=== PATIENT | female | born 1960 | race Caucasian/White ===

== ENCOUNTER 2021-10-27 09:49 | Emergency (ER) | payer MEDICAID ==
[~2021-10-27] VITALS: Ht 162.6 cm; Wt 70.5 kg
[2021-10-27 09:58] VITALS: BP 112/68
[2021-10-27 12:07] LABS: BASOPHILS # (AUTO) 0.1 X10'3 (0-0.2); BASOPHILS % (AUTO) 0.7 % (0-1); EOSINOPHILS # (AUTO) 0.1 X10'3 (0-0.9); EOSINOPHILS % (AUTO) 1.2 % (0-6); HEMATOCRIT 39.5 % (35.0-45.0); HEMOGLOBIN 13.1 g/dl (12.0-16.0); LYMPHOCYTES % (AUTO) 25.9 % (21-51); MEAN CORPUSCULAR HEMOGLOBIN 28.3 PG (27.0-31.0); MEAN CORPUSCULAR HGB CONC 33.1 g/dL (33.0-36.5); MEAN CORPUSCULAR VOLUME 85.6 FL (78-98); MEAN PLATELET VOLUME 8.3 FL (7.4-10.4); MONOCYTES # (AUTO) 0.7 X10'3 (0-0.9); NEUTROPHILS # (AUTO) 4.8 X10'3 (1.8-7.7); NEUTROPHILS % (AUTO) 63.2 % (42-75); PLATELET COUNT 249 X10'3 (140-440); RED BLOOD COUNT 4.61 X10'6 (4.20-5.60); WHITE BLOOD COUNT 7.6 X10'3 (4.5-11.0)
[2021-10-27 12:30] LABS: ALANINE AMINOTRANSFERASE 28 U/L (12-78); ALBUMIN 3.4 G/DL (3.4-5.0); ALKALINE PHOSPHATASE 99 IU/L (46-116); ANION GAP 8 (8-16); ASPARTATE AMINO TRANSFERASE 26 U/L (10-37); BILIRUBIN,TOTAL 0.6 MG/DL (0.1-1.0); BLOOD UREA NITROGEN 11 MG/DL (7-18); BUN/CREATININE RATIO 15.3 (6.6-38.0); CALCIUM 8.9 MG/DL (8.5-10.1); CHLORIDE 104 MMOL/L (99-107); CREATININE 0.72 MG/DL (0.40-0.90); GLUCOSE 100 MG/DL (70-104); POTASSIUM 3.5 MMOL/L (3.5-5.1); SODIUM 140 MMOL/L (135-145); TOTAL CARBON DIOXIDE 28.4 MMOL/L (24-32); TOTAL PROTEIN 6.8 G/DL (6.4-8.2); eGFR 82 ML/MIN
[2021-10-27 12:33] LABS: CLARITY,URINE CLEAR (Clear); COLOR,URINE YELLOW (Yellow); GLUCOSE, URINE NEGATIVE (Neg); KETONES,URINE NEGATIVE (Neg); LEUKOCYTE ESTERASE ,URINE NEGATIVE (Neg); NITRITES, URINE POSITIVE (Neg); OCCULT BLOOD,URINE NEGATIVE (Neg); PROTEIN,URINE NEGATIVE (Neg); UROBILINOGEN,URINE 0.2 E.U/dL (0.2-1.0)
[2021-10-27 12:39] LABS: UA COLLECTION TYPE CLN CATCH MIDSTREAM
[2021-10-27 12:43] LABS: BACTERIA,URINE FEW /HPF (Neg); CAL OXALATE CRYSTALS 1+ /HPF (NEGATIVE); MUCUS STRANDS FEW /LPF (Neg); RBC,URINE NONE SEEN /HPF (0-2); SQUAMOUS EPITHELIAL CELL,UR FEW /LPF (FEW); WBC,URINE 0-4 /HPF (0-4)
[2021-10-27] MEDS ORDERED: NAPR-56 PO (12:52)
[2021-10-27] MEDS ORDERED: CEPH250T PO (12:52)
[2021-10-27 12:57] LABS: URINE AMPHETAMINE SCREEN NEGATIVE (Neg); URINE BARBITUATE SCREEN NEGATIVE (Neg); URINE BENZODIAZEPINES SCREEN NEGATIVE (Neg); URINE CANNABINOID SCREEN NEGATIVE (Neg); URINE COCAINE SCREEN NEGATIVE (Neg); URINE METHADONE SCREEN NEGATIVE (Neg); URINE OPIATE SCREEN NEGATIVE (Neg); URINE PHENCYCLIDINE SCREEN NEGATIVE (Neg)
== END 2021-10-27 13:12 | disposition home or self-care (01) ==
LOC: ER 09:50
DX: N39.0 Urinary tract infection, site not specified (principal); K08.89 Other specified disorders of teeth and supporting structures; Z59.00 Homelessness unspecified; Z88.0 Allergy status to penicillin; Z72.89 Other problems related to lifestyle
CPT/HCPCS: 36415; 80053; 80305; 81001; 85025; 87077; 87088; 87186; 99283

== ENCOUNTER 2022-04-10 09:58 | Emergency (ER) | payer MEDICAID ==
[~2022-04-10] VITALS: Ht 157.5 cm; Wt 63.6 kg
[2022-04-10 11:21] VITALS: BP 126/80
[2022-04-10] MEDS ORDERED: HYDROcodone/acetaminophen 10/325mg tab PO ONE (11:55)
[2022-04-10] MEDS ORDERED: ALLO300T2 PO (11:57)
== END 2022-04-10 12:06 | disposition home or self-care (01) ==
LOC: ER 10:00
DX: S90.32XA Contusion of left foot, initial encounter (principal); E78.00 Pure hypercholesterolemia, unspecified; Z88.0 Allergy status to penicillin; X58.XXXA Exposure to other specified factors, initial encounter; Y93.89 Activity, other specified; Y92.89 Other specified places as the place of occurrence of the external cause; Y99.8 Other external cause status
CPT/HCPCS: 99283

== ENCOUNTER 2022-11-19 12:16 | Emergency (ER) | payer MEDICAID ==
[~2022-11-19] VITALS: Ht 162.6 cm; Wt 85.6 kg
[~2022-11-19 12:16] MED LIST: ALLO300T2 PO
[2022-11-19 13:26] VITALS: BP 150/99; PULSE 107; RESP 18; TEMP 99.1; O2SAT 94
[2022-11-19] MEDS ORDERED: LIDOcaine Viscous 15ml cup MM ONE (14:20)
[2022-11-19 15:05] LABS: BASOPHILS # (AUTO) 0.1 X10'3 (0-0.2); BASOPHILS % (AUTO) 1.2 % (0-1); EOSINOPHILS # (AUTO) 0.2 X10'3 (0-0.9); EOSINOPHILS % (AUTO) 2.5 % (0-6); HEMATOCRIT 31.1 % (35.0-45.0); HEMOGLOBIN 9.9 g/dl (12.0-16.0); LYMPHOCYTES % (AUTO) 28.9 % (21-51); MEAN CORPUSCULAR HEMOGLOBIN 22.9 PG (27.0-31.0); MEAN CORPUSCULAR HGB CONC 31.9 g/dL (33.0-36.5); MEAN CORPUSCULAR VOLUME 71.8 FL (78-98); MEAN PLATELET VOLUME 7.9 FL (7.4-10.4); MONOCYTES # (AUTO) 0.6 X10'3 (0-0.9); MONOCYTES % (AUTO) 8.1 % (2-12); NEUTROPHILS # (AUTO) 4.1 X10'3 (1.8-7.7); NEUTROPHILS % (AUTO) 59.3 % (42-75); PLATELET COUNT 333 X10'3 (140-440); RED BLOOD COUNT 4.33 X10'6 (4.20-5.60); RED CELL DISTRIBUTION WIDTH 23.1 % (11.5-14.5)
[2022-11-19 15:17] LABS: ALANINE AMINOTRANSFERASE 25 U/L (12-78); ALBUMIN 3.4 G/DL (3.4-5.0); ALBUMIN/GLOBULIN RATIO 0.9 (1.1-1.5); ALKALINE PHOSPHATASE 127 IU/L (46-116); ANION GAP 5 (8-16); ASPARTATE AMINO TRANSFERASE 21 U/L (10-37); BILIRUBIN,TOTAL 0.4 MG/DL (0.1-1.0); BLOOD UREA NITROGEN 12 MG/DL (7-18); BUN/CREATININE RATIO 14.6 (10.0-20.0); CALCIUM 9.2 MG/DL (8.5-10.1); CHLORIDE 106 MMOL/L (99-107); CREATININE 0.82 MG/DL (0.40-0.90); GLUCOSE 98 MG/DL (70-104); POTASSIUM 3.8 MMOL/L (3.5-5.1); SODIUM 138 MMOL/L (135-145); TOTAL CARBON DIOXIDE 26.7 MMOL/L (24-32); TOTAL PROTEIN 7.2 G/DL (6.4-8.2); eCRCL 61 ML/MIN; eGFR 71 ML/MIN
[2022-11-19 15:26] LABS: PRO BRAIN NATRIURETIC PEPTIDE 64 PG/ML (0-125)
[2022-11-19 15:45] LABS: SYPHILIS SCREENING TEST POC NEGATIVE (Negative)
[2022-11-19 16:05] LABS: PLATELET ESTIMATE NORMAL
[2022-11-19 16:06] LABS: ANISOCYTOSIS 3+; ELLIPTOCYTES FEW; HYPOCHROMASIA 1+; MICROCYTOSIS 1+
[2022-11-19] MEDS ORDERED: LIDO15SO3 PO (16:06)
--- NOTE | 2022-11-19 16:58 | NUR ---
EMILY ALEJANDRE WAS NOTIFIED OF PT'S BP-137/102. QM NURSE SAID OK TO D/C HER.
== END 2022-11-19 17:21 | disposition home or self-care (01) ==
LOC: ER 12:17
DX: K12.0 Recurrent oral aphthae (principal); D64.9 Anemia, unspecified; R06.00 Dyspnea, unspecified; E78.00 Pure hypercholesterolemia, unspecified; F41.9 Anxiety disorder, unspecified; Z88.0 Allergy status to penicillin; Z79.899 Other long term (current) drug therapy
CPT/HCPCS: 36415; 71045; 80053; 83880; 84484; 85008; 85025; 93005; 99285

== ENCOUNTER 2023-01-04 15:38 | Emergency (ER) | payer MEDICAID ==
[~2023-01-04] VITALS: Ht 157.5 cm; Wt 81.8 kg
[~2023-01-04 15:38] MED LIST changes: +LIDO15SO3 PO
[2023-01-04 15:44] VITALS: TEMP 97.8
[2023-01-04 16:13] LABS: MEAN PLATELET VOLUME 8.4 FL (7.4-10.4)
[2023-01-04 16:15] LABS: BASOPHILS # (AUTO) 0.1 X10'3 (0-0.2); BASOPHILS % (AUTO) 0.9 % (0-1); EOSINOPHILS # (AUTO) 0.1 X10'3 (0-0.9); EOSINOPHILS % (AUTO) 1.1 % (0-6); HEMATOCRIT 34.5 % (35.0-45.0); HEMOGLOBIN 11.1 g/dl (12.0-16.0); LYMPHOCYTES # (AUTO) 2.6 X10'3 (1.1-4.8); MEAN CORPUSCULAR HEMOGLOBIN 23.3 PG (27.0-31.0); MEAN CORPUSCULAR HGB CONC 32.1 g/dL (33.0-36.5); MEAN CORPUSCULAR VOLUME 72.5 FL (78-98); MONOCYTES # (AUTO) 0.8 X10'3 (0-0.9); MONOCYTES % (AUTO) 7.7 % (2-12); NEUTROPHILS # (AUTO) 6.5 X10'3 (1.8-7.7); NEUTROPHILS % (AUTO) 64.3 % (42-75); PLATELET COUNT 342 X10'3 (140-440); RED BLOOD COUNT 4.76 X10'6 (4.20-5.60); RED CELL DISTRIBUTION WIDTH 19.9 % (11.5-14.5); WHITE BLOOD COUNT 10.1 X10'3 (4.5-11.0)
[2023-01-04 16:40] LABS: ANISOCYTOSIS 2+; ELLIPTOCYTES 1+; HYPOCHROMASIA 1+; MICROCYTOSIS 1+; PLATELET ESTIMATE NORMAL; TEAR DROP CELLS FEW
--- NOTE | 2023-01-04 16:44 | NUR ---
Patient got up to [facility] and had diarrhea, loose stool. Pt reports caregiver gave her a laxative.
[2023-01-04 16:50] LABS: ALANINE AMINOTRANSFERASE 23 U/L (12-78); ALBUMIN 3.4 G/DL (3.4-5.0); ALBUMIN/GLOBULIN RATIO 0.9 (1.1-1.5); ALKALINE PHOSPHATASE 122 IU/L (46-116); ANION GAP 12 (8-16); ASPARTATE AMINO TRANSFERASE 20 U/L (10-37); BILIRUBIN,TOTAL 0.6 MG/DL (0.1-1.0); BLOOD UREA NITROGEN 21 MG/DL (7-18); CALCIUM 8.9 MG/DL (8.5-10.1); CHLORIDE 99 MMOL/L (99-107); CREATININE 0.84 MG/DL (0.40-0.90); GLUCOSE 97 MG/DL (70-104); POTASSIUM 3.3 MMOL/L (3.5-5.1); SODIUM 132 MMOL/L (135-145); TOTAL CARBON DIOXIDE 21.5 MMOL/L (24-32); TOTAL PROTEIN 7.1 G/DL (6.4-8.2); eCRCL 55 ML/MIN; eGFR 69 ML/MIN
[2023-01-04 16:59] LABS: LIPASE 25 U/L (16-77); MAGNESIUM 2.1 MG/DL (1.5-2.4); PRO BRAIN NATRIURETIC PEPTIDE < 30 PG/ML (0-125)
[2023-01-04 17:07] LABS: BILIRUBIN,URINE NEGATIVE (Neg); CLARITY,URINE CLEAR (Clear); COLOR,URINE STRAW (Yellow); GLUCOSE, URINE NEGATIVE (Neg); KETONES,URINE NEGATIVE (Neg); LEUKOCYTE ESTERASE ,URINE NEGATIVE (Neg); NITRITES, URINE NEGATIVE (Neg); OCCULT BLOOD,URINE NEGATIVE (Neg); PH,URINE 5.5 (4.8-8.0); PROTEIN,URINE NEGATIVE (Neg); UROBILINOGEN,URINE 0.2 E.U/dL (0.2-1.0)
[2023-01-04 17:08] LABS: UA COLLECTION TYPE STRAIGHT CATH
[2023-01-04 17:37] VITALS: BP 131/88
--- NOTE | 2023-01-04 17:46 | NUR ---
PATIENT RESTING WITH EYES OPENED.
[2023-01-04] MEDS ORDERED: albuterol 2.5 MG/3 ML nebule NEB ONE (18:05)
[2023-01-04 18:17] VITALS: PULSE 98; RESP 20; O2SAT 100
[2023-01-04] MEDS ORDERED: AZIT250T82 PO (18:17)
[2023-01-04] MEDS ORDERED: METH4TAB81 PO (18:17)
[2023-01-04 18:23] VITALS: PULSE 101; RESP 20; O2SAT 100
--- NOTE | 2023-01-04 18:43 | NUR ---
Spoke with Alba, states she will be here to take Pau home. Patient assisted with getting dressed.
== END 2023-01-04 18:56 | disposition home or self-care (01) ==
LOC: ER 15:38
DX: J06.9 Acute upper respiratory infection, unspecified (principal); E78.00 Pure hypercholesterolemia, unspecified; F31.9 Bipolar disorder, unspecified; Z88.0 Allergy status to penicillin; Z79.899 Other long term (current) drug therapy
CPT/HCPCS: 36415; 71045; 80053; 81003; 83690; 83735; 83880; 84484; 85008; 85025; 93005; 94640; 94760; 99285

== ENCOUNTER 2024-05-18 15:42 | Emergency (ER) | payer MEDICAID ==
[~2024-05-18] VITALS: Ht 157.5 cm; Wt 82.2 kg
[~2024-05-18 15:42] MED LIST changes: +DIPH25CA83 PO; -LIDO15SO3 PO; +LIDO15SO9 PO; +METH4TAB81 PO
[2024-05-18 15:47] VITALS: BP 121/84; PULSE 113; RESP 20; O2SAT 96
[2024-05-18] MEDS ORDERED: CYCL-1 PO (17:47)
[2024-05-18] MEDS ORDERED: LIDO700A32 TOP (17:47)
[2024-05-18 18:05] VITALS: TEMP 97.8
== END 2024-05-18 18:06 | disposition home or self-care (01) ==
LOC: ER 15:42
DX: S16.1XXA Strain of muscle, fascia and tendon at neck level, initial encounter (principal); E78.00 Pure hypercholesterolemia, unspecified; Z88.0 Allergy status to penicillin; Z88.8 Allergy status to other drugs, medicaments and biological substances; X58.XXXA Exposure to other specified factors, initial encounter; Y93.89 Activity, other specified; Y92.89 Other specified places as the place of occurrence of the external cause; Y99.8 Other external cause status
CPT/HCPCS: 72040; 99283

== ENCOUNTER 2024-08-21 10:00 | Outpatient (CLI) | payer MEDICAID ==
[~2024-08-21] VITALS: Ht 190.5 cm; Wt 81.6 kg
[~2024-08-21 10:00] MED LIST changes: +CYCL-1 PO; +ESOM40CA PO; +LIDO-52 TOP; +SERT-153 PO; +SIN25C PO; +ZOF4T PO
[2024-08-21 10:37] VITALS: PULSE 98; RESP 16; O2SAT 96
[2024-08-21 10:57] VITALS: PULSE 97; RESP 16
[2024-08-21] MEDS: albuterol 2.5 MG/3 ML nebule NEB ONE (11:32)
[2024-08-21] MEDS ORDERED: CLIN-97 PO (11:49)
[2024-08-21] MEDS ORDERED: HYDR-3965 PO (12:10)
--- NOTE | 2024-08-26 14:07 | PROCEDURE NOTE - Respiratory ---
Procedure Note-Respiratory Providers to CC Copies To 1: FLORA RODAS DO Procedure Name: This is a spirometry study dated August 21, 2024. The spirometry study was performed both before and after inhaled bronchodilator. Spirometry measurements: The forced vital capacity and the FEV1 are both normal. The FEV1 ratio is normal. The flow rates are normal. There is not much change after bronchodilator was given. Conclusion: Normal spirometry study. Even though this patient has a substantial smoking history, the pulmonary physiology remains within normal limits. We have no previous studies for comparison. LUANNE MARTINO MD Aug 26, 2024 14:07
== END 2024-08-21 23:59 | disposition home or self-care (01) ==
LOC: RT 10:00
PROVIDERS: ATTEND Student in an Organized Health Care Education/Training Program
DX: R06.02 Shortness of breath (principal)
CPT/HCPCS: 94060; 94760

== ENCOUNTER 2024-08-21 11:16 | Emergency (ER) | payer MEDICAID ==
[~2024-08-21] VITALS: Ht 156.2 cm; Wt 79.3 kg
[2024-08-21 11:18] VITALS: BP 95/60; PULSE 106; RESP 18; TEMP 97.1; O2SAT 92
[2024-08-21] MEDS ORDERED: CLIN-97 PO (11:49)
--- NOTE | 2024-08-21 11:50 | Physician Documentation ---
HPI ~ General Chief Complaint: Tooth Problem Stated Complaint: TOOTH INFECTION Time Seen by MD: 11:35 OK to notify your PCP?: Yes Primary Medical Doctor: DR BEACH Source: patient Mode of Arrival: POV Exam Limitations: no limitations History of Present Illness HPI Comment This is a 64-year-old female who comes in complaining of hospitalist dental infection. The patient has a history of very poor dentition and is in the process of having all of her teeth removed by an oral surgeon. The patient states she is having swelling and pain of her left jaw in his requesting antibiotics. She denies fevers or chills. She admits purulent discharge from the gums Medication Reconciliation Allergies: Coded Allergies: Penicillins (Unverified Allergy, Unknown, 08/21/24) Scheduled Allopurinol (Allopurinol), 1 TAB PO DAILY Clindamycin HCL* (Clindamycin HCL*), 1 CAP PO Q6H Cyclobenzaprine* (Cyclobenzaprine*), 1 TAB PO HS Diphenhydramine Hcl (Benadryl), 2 CAP PO HS Doxepin Hcl* (Sinequan*), 75 MG PO DAILY, (Reported) Esomeprazole Mag Trihydrate* (Nexium*), 40 MG PO AC Lidocaine (Lidoderm), 1 PATCH TOP DAILY Lidocaine HCl (Lidocaine HCl Viscous), 2 ML PO QID Methylprednisolone (Medrol Dosepak), 4 MG PO as directed Ondansetron ODT* (Zofran ODT*), 8 MG PO Q6H Sertraline HCl (Sertraline HCl), 100 MG PO DAILY, (Reported) Past Medical History Past Medical History: High Cholesterol, Deep Vein Thrombosis, Anxiety, Depression Past Surgical History: orthopedic surgeries Alcohol Use: Occasionally Drug Use: none Lives In: Home Physical Exam Vital Signs: Temperature: 97.1, Source: Temporal, Heart Rate: 106, Respiratory Rate: 18, BP: 95/60, Pulse Oximetry: 92, Weight: 79.350 Pulse Oximetry Reflects: adequate oxygenation General Appearance: alert, WD/WN, no apparent distress Teeth/Gums The patient has extremely poor dentition throughout. She has multiple missing teeth and the teeth that is or still in place her all severely decayed. There is erythema and edema of the gums of the left jaw line. No obvious purulent discharge at this time Face There is a very subtle fullness/edema of the left outer mandible. It has no change in skin color or temperature. There is tenderness to palpation of the area without obvious fluctuance Progress Results/Orders Results/Orders Vital Signs 08/21/24 11:18 Temp 97.1 Pulse 106 Resp 18 B/P (MAP) 95/60 Pulse Ox 92 Medical Decision Making Findings The patient is allergic to penicillin so I will place her on clindamycin 300 mg 4 times a day. She can take [id number] medications for pain and follow up with the oral surgeon. Additional Comment Periapical abscess. Dental infection. Tooth decay. Departure Disposition: HOME / SELF CARE / HOMELESS Impression: Primary Impression: Periapical abscess Condition: Stable Discharge Instructions: Dental Abscess Additional Instructions: Take the medications as prescribed. You can use [id number] medications such as ibuprofen or Tylenol for pain. Follow up with the your oral surgeon. Return to the ER for any worsening or concerning symptoms Referrals: NO PRIMARY CARE PROVIDER (PCP) Prescriptions Hydrocodone Bit/Acetaminophen 5/325 MG ([place]ass[place] 5/325 MG) 5 Mg/325 Mg Tablet 1 TAB PO Q8H PRN for pain for 5 Days, #10 TAB Prov: RYAN MÉNDEZ 08/21/24 Clindamycin HCL* (Clindamycin HCL*) 300 Mg Capsule 1 CAP PO Q6H, #40 CAP Prov: RYAN MÉNDEZ 08/21/24 Signature Scribe Signature: No scribe Attestation: The note accurately reflects work and decisions made by me.Ryan SEGUAR 08/21/24 11:49 RYAN MÉNDEZ Aug 21, 2024 11:49
[2024-08-21] MEDS ORDERED: HYDR-3965 PO (12:10)
== END 2024-08-21 12:16 | disposition home or self-care (01) ==
LOC: ER 11:17
DX: K04.7 Periapical abscess without sinus (principal); E78.00 Pure hypercholesterolemia, unspecified; F41.9 Anxiety disorder, unspecified; F32.A Depression, unspecified; Z86.718 Personal history of other venous thrombosis and embolism; Z88.0 Allergy status to penicillin; Z79.899 Other long term (current) drug therapy; Z72.89 Other problems related to lifestyle
CPT/HCPCS: 99283